=== PATIENT | male | born 1965 | race Caucasian/White ===

== ENCOUNTER 2017-04-23 10:34 | Emergency (ER) | payer MEDICAID ==
[~2017-04-23] VITALS: Ht 170.2 cm; Wt 84.1 kg
[2017-04-23] MEDS ORDERED: TAM75C PO (11:18)
[2017-04-23 11:23] VITALS: BP 119/68
== END 2017-04-23 11:24 | disposition home or self-care (01) ==
LOC: ER 10:34
DX: R05 Cough (principal); R68.89 Other general symptoms and signs; R68.83 Chills (without fever); F17.200 Nicotine dependence, unspecified, uncomplicated; Z88.0 Allergy status to penicillin; Z79.899 Other long term (current) drug therapy
CPT/HCPCS: 99283